=== PATIENT | female | born 1970 | race Caucasian/White ===

== ENCOUNTER 2021-03-01 08:43 | Emergency (ER) | payer BC, OTHER ==
[2021-03-01] MEDS ORDERED: ONDANSETRON 4 MG/2 ML VIAL ONE (09:37)
[2021-03-01] MEDS ORDERED: NA CHLORIDE 0.9% 1,000 ML ONE (09:37)
[2021-03-01 09:49] LABS: Absolute Lymphocytes (CBC) 2.1 K/uL (0.7-4.9); Basophils % 0.3 % (0-1.3); Hematocrit 42.9 % (36.0-45.0); Lymphocytes % 23.6 % (15.3-44.8); MPV 7.9 fL (7.6-11.3); RBC Red Blood Cell Count 4.89 M/uL (3.86-4.86)
[2021-03-01 10:15] LABS: Urine Blood Negative (Negative); Urine Glucose Negative (Negative); Urine Protein Negative (Negative)
[2021-03-01 11:39] LABS: ALT/SGPT 48 U/L (12-78); AST/SGOT 23 U/L (15-37); Albumin 3.5 g/dL (3.4-5.0); Alkaline Phosphatase 100 U/L (45-117); BUN Blood Urea Nitrogen 7 mg/dL (7-18); Bicarbonate 27 mmol/L (21-32); Bilirubin Direct 0.1 mg/dL (0-0.2); Bilirubin Total 0.6 mg/dL (0.2-1.0); Glucose Level 132 mg/dL (74-106); Lipase 108 U/L (73-393); Potassium 3.5 mmol/L (3.5-5.1); Protein, Total 7.2 g/dL (6.4-8.2); Sodium Level 141 mmol/L (136-145)
--- NOTE | 2021-03-01 11:59 | ER ---
Nurse's Notes [facility] Name: Kierra Piña Age: 50 yrs Sex: Female : 1970 Arrival Date: 03/01/2021 Time: 08:52 Bed 23 Private MD: Diagnosis: Vomiting;Diarrhea, unspecified Presentation: 03/01 08:53 Chief complaint: Patient states: Saturday night i helped my daughter moved and i threw tw2 up out of the blue. i thought i was overheated. then that night i woke up in a painicy cold sweat and thought it was anxiety. now i have diarrhea and nausea since Saturday. I cant keep anything down. and i have been running fever off and on since Saturday as well. Coronavirus screen: chills, diarrhea, fever, nausea, vomiting. Client presents with at least one sign or symptom that may indicate coronavirus-19. Standard/surgical mask placed on the client. Provider contacted for isolation considerations. Coronavirus screen: fatigue, shaking with chills. Ebola Screen: Patient denies travel to an Ebola-affected area in the 21 days before illness onset. Initial Sepsis Screen: Does the patient meet any 2 criteria? HR > 90 bpm. Does the patient have a suspected source of infection? No. Patient's initial sepsis screen is negative. Risk Assessment: Do you want to hurt yourself or someone else? Patient reports no desire to harm self or others. 08:53 Method Of Arrival: Ambulatory tw2 08:53 Acuity: CIRILO 3 tw2 08:58 Chief complaint: Patient states: but mostly i just havent been able to sleep. i took tw2 the tylenol pm this morning and i took the muscle relaxer Dr. Franco gave me last night about 4 am. Onset of symptoms was March 01, 2021. Triage Assessment: 08:57 General: Appears in no apparent distress. Behavior is calm, cooperative, appropriate tw2 for age. Pain: Denies pain. GI: Reports diarrhea, nausea, vomiting. 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 - Social history:: Smoking status: Patient denies any tobacco usage or history of. Screenin:33 Abuse screen: Denies threats or abuse. Nutritional screening: No deficits noted. oh Tuberculosis screening: No symptoms or risk factors identified. Fall Risk None identified. Assessment: 09:30 General: Appears uncomfortable, Behavior is calm, cooperative, appropriate for age, oh Reports nausea vomiting diarrhea. GI: Abdomen is Reports diarrhea, nausea, vomiting. GI:. Vital Signs: 08:57 BP 131 / 98; Pulse 92; Resp 18; Temp 98.6(TE); Pulse Ox 100% on R/A; Weight 99.79 kg tw2 (R); Height 5 ft. 4 in. (162.56 cm); 12:37 BP 126 / 82; Pulse 81; Resp 17; Pulse Ox 99% on R/A; oh 08:57 Body Mass Index 37.76 (99.79 kg, 162.56 cm) tw2 ED Course: 08:52 Patient arrived in ED. ds1 08:53 Laureano Guzmán PA is PHCP. jmm 08:53 Keyon Hudson MD is Attending Physician. jmm 08:55 Triage completed. tw2 08:57 Arm band placed on. tw2 09:06 Patti Thayer, RN is Primary Nurse. oh 09:33 Bed in low position. Call light in reach. Side rails up X 1. oh 09:51 Inserted saline lock: 20 gauge in right wrist, using aseptic technique. Blood collected.oh 11:01 Lab(s) recollected, by me, sent to lab. vg1 12:37 No provider procedures requiring assistance completed. oh 12:37 IV discontinued, bleeding controlled, Pressure dressing applied. oh Administered Medications: 09:30 Drug: NS 0.9% 1000 ml Route: IV; Rate: 1 bolus; Site: left wrist; oh 09:30 Drug: Zofran (Ondansetron) 4 mg Route: IVP; Site: right wrist; oh Outcome: 11:58 Discharge ordered by MD. jmm 12:37 Discharged to home ambulatory. oh 12:37 Condition: good 12:37 Discharge instructions given to patient. 12:38 Patient left the ED. oh Signatures: Laureano Guzmán PA PA jmm Sanford, Demi ds1 Pamela Pizano, RN RN tw2 Halima Bailey RN RN vg1 Patti Thayer RN RN oh Corrections: (The following items were deleted from the chart) 11:11 11:00 CORONAVIRUS+MR.LAB.BRZ drawn and sent. oh EDMS
--- NOTE | 2021-03-01 11:59 | EDPHYS ---
Physician Documentation [facility] Name: Kierra Piña Age: 50 yrs Sex: Female : 1970 Arrival Date: 03/01/2021 Time: 08:52 Bed 23 Private MD: ED Physician Keyon Hudson HPI: 03/01 09:02 This 50 yrs old Female presents to ER via Ambulatory with complaints of jmm Nausea/Vomiting/Diarrhea, Fever. 09:02 The patient presents to the emergency department with nausea, vomiting, diarrhea. jmm Onset: The symptoms/episode began/occurred acutely, 4 day(s) ago. Possible causes: unknown. The symptoms are aggravated by nothing. The symptoms are alleviated by nothing. Associated signs and symptoms: Pertinent positives: fever, Pertinent negatives: abdominal pain. This is a 50-year-old female with no chronic medical conditions presents emerge department with complaints of vomiting and diarrhea beginning this past Saturday. Patient states that the time she attributed to eat because she was helping her daughter move. Patient states that last night she developed fever chills along with episodes of diarrhea. Patient denies abdominal pain unless she is actively vomiting.. 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 - Social history:: Smoking status: Patient denies any tobacco usage or history of. ROS: 09:02 Constitutional: Positive for body aches, chills, fever. jmm 09:02 Abdomen/GI: Positive for nausea and vomiting, diarrhea. 09:02 All other systems are negative. Exam: 09:02 Constitutional: This is a well developed, well nourished patient who is awake, alert, jmm and in no acute distress. Head/Face: atraumatic. Eyes: EOMI, no conjunctival erythema appreciated ENT: Moist Mucus Membranes Neck: Trachea midline, Supple Chest/axilla: Normal chest wall appearance and motion. Cardiovascular: Regular rate and rhythm. No edema appreciated Respiratory: Normal respirations, no respiratory distress appreciated 09:02 Back: Normal ROM Skin: General appearance color normal MS/ Extremity: Moves all extremities, no obvious deformities appreciated, no edema noted to the lower extremities Neuro: Awake and alert, normal gait Psych: Behavior is normal, Mood is normal, Patient is cooperative and pleasant 09:02 Abdomen/GI: Inspection: abdomen appears normal, Bowel sounds: normal, Palpation: abdomen is soft and non-tender, in all quadrants. Vital Signs: 08:57 BP 131 / 98; Pulse 92; Resp 18; Temp 98.6(TE); Pulse Ox 100% on R/A; Weight 99.79 kg tw2 (R); Height 5 ft. 4 in. (162.56 cm); 12:37 BP 126 / 82; Pulse 81; Resp 17; Pulse Ox 99% on R/A; oh 08:57 Body Mass Index 37.76 (99.79 kg, 162.56 cm) tw2 MDM: 09:02 Patient medically screened. [facility] 11:57 Data reviewed: vital signs, nurses notes. Counseling: I had a detailed discussion with melanie the patient and/or guardian regarding: the historical points, exam findings, and any diagnostic results supporting the discharge/admit diagnosis, lab results, the need for outpatient follow up, to return to the emergency department if symptoms worsen or persist or if there are any questions or concerns that arise at home. ED course: Patient is alert nontoxic in appearance in the ED. No signs of an acute intra-abdominal process. Patient states she feels much better after IV fluids and antibiotics. Patient is otherwise given strict return precautions agrees with plan of care.. 03/01 09:09 Order name: Basic Metabolic Panel; Complete Time: 11:42 [facility] 03/01 09:09 Order name: CBC with Diff; Complete Time: : [facility] 03/01 09:09 Order name: Hepatic Function; Complete Time: 11:42 [facility] 03/01 09:09 Order name: Lipase; Complete Time: 11:42 [facility] 03/01 10:15 Order name: Urine Dipstick-Ancillary; Complete Time: 10:19 [facility] 03/01 09:09 Order name: IV Saline Lock; Complete Time: [facility] 03/01 09:09 Order name: Labs collected and sent; Complete Time: : [facility] 03/01 09:09 Order name: Urine Dipstick-Ancillary (obtain specimen); Complete Time: 10:16 [facility] 03/01 09:09 Order name: Urine Test (obtain specimen); Complete Time: 10:16 [facility] 03/01 09:54 Order name: Labs - recollect needed: recollect green tube; Complete Time: 10:09 bd 03/01 12:07 Order name: SARS-COV-2 RT PCR; Complete Time: 12:10 [facility] 03/01 10:18 Order name: Labs - recollect needed: recollect green tube; Complete Time: 11:00 bd Administered Medications: :30 Drug: NS 0.9% 1000 ml Route: IV; Rate: 1 bolus; Site: left wrist; oh 09:30 Drug: Zofran (Ondansetron) 4 mg Route: IVP; Site: right wrist; oh Disposition: 03/02 11:07 Co-signature as Attending Physician, Keyon Hudson MD I agree with the assessment and kdr plan of care. Disposition Summary: 03/01/21 11:58 Discharge Ordered Location: Home [facility] Condition: Stable [facility] Diagnosis - Vomiting jmm - Diarrhea, unspecified jm Followup: [facility] - With: Private Physician - When: 2 - 3 days - Reason: Recheck today's complaints, Continuance of care, Re-evaluation by your physician Discharge Instructions: - Discharge Summary Sheet [facility] - Food Choices to Help Relieve Diarrhea, Adult jmm - Vomiting, Adult jmm Forms: - Medication Reconciliation Form [facility] - Thank You Letter [facility] - Antibiotic Education [facility] - Prescription Opioid Use [facility] Prescriptions: - ondansetron 4 mg Oral tablet,disintegrating - take 1 tablet by ORAL route every 4-6 hours As needed; 20 tablet; Refills: 0, [facility] Product Selection Permitted Signatures: Dispatcher [employer] EDIA Mili Pillai Kevin, MD MD [facility] Laureano Guzmán PA PA jmm Wise, Tara, RN RN 2 Patti Thayer RN RN oh Corrections: (The following items were deleted from the chart) 03/01 11:11 10:18 CORONAVIRUS+MR.LAB.BRZ ordered. EDMS EDMS
[2021-03-01 12:56] VITALS: TEMP 98.6
[2021-03-01 12:57] VITALS: BP 126/82; O2SAT 99
== END 2021-03-01 12:38 | disposition home or self-care (01) ==
LOC: ER 08:43
DX: R19.7 Diarrhea, unspecified (principal); Z20.822 Contact with and (suspected) exposure to COVID-19; Z88.5 Allergy status to narcotic agent; Z88.8 Allergy status to other drugs, medicaments and biological substances
CPT/HCPCS: 85025; 80048; 36415; 80076; 81003; 83690; 96374; 99283; U0003; J7030; J2405

== ENCOUNTER 2021-03-02 09:33 | Emergency (ER) | payer OTHER ==
[2021-03-02 10:01] LABS: Absolute Lymphocytes (CBC) 2.9 K/uL (0.7-4.9); Basophils % 0.7 % (0-1.3); Hematocrit 43.7 % (36.0-45.0); Lymphocytes % 30.1 % (15.3-44.8); MPV 7.7 fL (7.6-11.3); RBC Red Blood Cell Count 4.96 M/uL (3.86-4.86)
[2021-03-02] MEDS ORDERED: NA CHLORIDE 0.9% 1,000 ML ONE (10:15)
[2021-03-02] MEDS ORDERED: PROMETHAZINE INJ 25 MG/ML AMP ONE (10:15)
[2021-03-02 10:36] LABS: ALT/SGPT 57 U/L (12-78); AST/SGOT 35 U/L (15-37); Albumin 3.9 g/dL (3.4-5.0); Alkaline Phosphatase 101 U/L (45-117); BUN Blood Urea Nitrogen 7 mg/dL (7-18); Bicarbonate 25 mmol/L (21-32); Bilirubin Direct 0.2 mg/dL (0-0.2); Bilirubin Total 0.8 mg/dL (0.2-1.0); Glucose Level 117 mg/dL (74-106); Lipase 119 U/L (73-393); Potassium 3.6 mmol/L (3.5-5.1); Protein, Total 7.8 g/dL (6.4-8.2); Sodium Level 139 mmol/L (136-145)
--- NOTE | 2021-03-02 11:18 | RAD REPORT ---
EXAM DESCRIPTION: CTAbdomen Pelvis W Contrast - 03/02/2021 10:56 am CLINICAL HISTORY: . Abd pain;Nausea / vomiting COMPARISON: CT-STONE PROTOCOL dated 04/23/2012 TECHNIQUE: Biphasic CT imaging of the abdomen and pelvis was performed with 100 ml non-ionic IV cont rast. All CT scans are performed using dose optimization technique as appropriate and may include automated exposure control or mA/KV adjustment according to patient size. FINDINGS: Lower chest: No acute abnormality. Liver: No acute abnormality or suspicious lesions. Biliary: No biliary ductal dilatation. Stomach: No significant focal abnormality. Duodenum: No significant focal abnormality. Pancreas: No significant abnormality. Spleen: No significant abnormality. Adrenal: No suspicious lesions. Kidney/ureter: No hydronephrosis. 3 mm stone in the right kidney. Retroperitoneum: No retroperitoneal adenopathy. Vascular: No aneurysm. Bowel: No significant focal abnormality. Diverticulosis without diverticulitis. Normal appendix. Peritoneum: Tubular structure in the lower pelvis near the right adnexa measuring 7.5 cm by 2.4 cm. T his is new since 22/05 Bladder: Grossly unremarkable. Reproductive: Interval hysterectomy. Bones: No acute fracture. Multilevel degenerative changes are present in the spine. Other: n/a IMPRESSION: No definite acute intra- abdominal abnormality. Incidental note of a new tubular structu re in the pelvis which may represent a dilated residual fallopian tube (hydrosalpinx). The patient lundberg s had an interval hysterectomy. It could also represent a peritoneal inclusion cyst.
[2021-03-02 11:31] LABS: Urine Blood Negative (Negative); Urine Glucose Negative (Negative); Urine Protein Negative (Negative)
--- NOTE | 2021-03-02 11:49 | EDPHYS ---
Physician Documentation [facility] Name: Kierra Piña Age: 50 yrs Sex: Female : 1970 Arrival Date: 03/02/2021 Time: 09:36 Bed 30 Private MD: ED Physician Flip Islas HPI: 03/02 09:39 This 50 yrs old Female presents to ER via Unassigned with complaints of rn nausea/vomiting/diarrhea. 09:39 The patient presents to the emergency department with nausea, vomiting, diarrhea. rn Onset: The symptoms/episode began/occurred 5 day(s) ago. Possible causes: unknown. The symptoms are aggravated by nothing. The symptoms are alleviated by nothing. Associated signs and symptoms: Pertinent positives: abdominal pain, nausea, vomiting, Pertinent negatives: fever, GI bleeding. Severity of symptoms: At their worst the symptoms were moderate in the emergency department the symptoms are unchanged. The patient has not experienced similar symptoms in the past. The patient has been recently seen at the [facility] Emergency Department. Patient seen here in ER yesterday, now approximately 5 days of nausea/vomiting/diarrhea/abdominal cramping. Denies any GI bleeding. Denies fever. Denies any sick contacts. Reports vomiting is improved but still having persistent diarrhea. Seen here yesterday with negative blood work, hydrated, felt better and had an appetite when she went home but when she started eating says food goes right through her. Feels generalized weakness and fatigue. Just started on antidepressant recently.. Historical: - Allergies: 09:45 Dilaudid; ss 09:45 hydromorphone HCl; ss - Home Meds: 09:45 None [Active]; ss - PMHx: 09:45 Hypertensive disorder; ss - PSHx: 09:45 hysterectomy; ss - Immunization history:: Client reports receiving the 2nd dose of the Covid vaccine. - Social history:: Smoking status: Patient denies any tobacco usage or history of. Patient/guardian denies using street drugs. - Family history:: not pertinent. - Hospitalizations: : No recent hospitalization is reported. ROS: 09:39 Constitutional: Negative for fever, chills, and weight loss, Eyes: Negative for injury, rn pain, redness, and discharge, ENT: Negative for injury, pain, and discharge, Neck: Negative for injury, pain, and swelling, Cardiovascular: Negative for chest pain, palpitations, and edema, Respiratory: Negative for shortness of breath, cough, wheezing, and pleuritic chest pain, Abdomen/GI: Negative for constipation Back: Negative for injury and pain, : Negative for injury, bleeding, discharge, and swelling, MS/Extremity: Negative for injury and deformity, Skin: Negative for injury, rash, and discoloration, Neuro: Negative for headache, numbness, tingling, and seizure. Exam: 09:39 Constitutional: This is a well developed, well nourished patient who is awake, alert, rn appears anxious Head/Face: Normocephalic, atraumatic. Eyes: Periorbital areas with no swelling, redness, or edema. ENT: Dry MM Cardiovascular: Regular rate and rhythm. No pulse deficits. Respiratory: No increased work of breathing, no retractions or nasal flaring. Abdomen/GI: Soft, non-tender Skin: Warm, dry MS/ Extremity: Pulses equal, no cyanosis. Neuro: Awake and alert, GCS 15 10:30 ECG was reviewed by the Attending Physician. rn Vital Signs: 09:40 BP 132 / 95; Pulse 81; Resp 20; Temp 98.2(TE); Pulse Ox 100% ; Weight 99.34 kg; Height ss 5 ft. 4 in. (162.56 cm); Pain 0/10; 10:06 BP 132 / 95; Pulse 81; Resp 20; Temp 98.2; Pulse Ox 100% on R/A; kh1 12:14 BP 138 / 93; Pulse 79; Resp 18; Pulse Ox 98% on R/A; kh1 09:40 Body Mass Index 37.59 (99.34 kg, 162.56 cm) Florencio Coma Score: 10:06 Eye Response: spontaneous(4). Verbal Response: oriented(5). Motor Response: obeys kh1 commands(6). Total: 15. MDM: 09:38 Patient medically screened. rn 10:07 ED course: Patient seems very anxious and worked up. Benign abdominal exam. Normal rn blood work yesterday. Stable vitals today. Could be an acute stress reaction. Patient seems fixated on whether or not she has Covid and now has 2 - Covid tests, has a close friend that is dying of Covid, and states has been having days of concern and stress with any little thing lately. She was just started on antidepressant this past week for anxiety after saw PCP.. 11:46 Differential diagnosis: Nonspecific abd pain, gastritis, pancreatitis, appendicitis, rn diverticulitis, viral gastroenteritis, gastroenteritis. Data reviewed: vital signs, nurses notes, lab test result(s), radiologic studies, CT scan, and as a result, I will discharge patient. Data interpreted: radiation monitor: rate is 81 beats/min, rhythm is normal sinus rhythm, regular, with no ectopy, Interpretation: normal rate, normal rhythm, Pulse oximetry: on room air is 81 %. Interpretation: normal. Counseling: I had a detailed discussion with the patient and/or guardian regarding: the historical points, exam findings, and any diagnostic results supporting the discharge/admit diagnosis, lab results, radiology results, the need for outpatient follow up, to return to the emergency department if symptoms worsen or persist or if there are any questions or concerns that arise at home. Response to treatment: the patient's symptoms have markedly improved after treatment, and as a result, I will discharge patient. Special discussion: Based on the patient's Hx, exam, and Dx evaluation, there is no indication for emergent surgery or inpatient Tx. It is understood by the patient/guardian that if the Sx's persist or worsen they need to return immediately for re-evaluation. I discussed with the patient/guardian in detail that at this point there is no indication for admission to the hospital. It is understood, however, that if the symptoms persist or worsen the patient needs to return immediately for re-evaluation. Based on the history and exam findings, there is no indication for further emergent testing or inpatient evaluation. I discussed with the patient/guardian the need to see the primary care provider for further evaluation of the symptoms. I discussed with the patient/guardian the need to see the psychiatrist for further evaluation of the symptoms. ED course: No acute abnormalities in blood/urine/CAT scan. Patient much better after Phenergan and fluids. Much more relaxed. Had long discussions with patient and regarding a possibility of acute stress reaction, anxiety, viral infection in the culmination of all the symptoms. Will DC home with return precautions and reassured patient.. 03/02 09:38 Order name: CBC with Diff; Complete Time: 11:11 rn 03/02 09:38 Order name: Basic Metabolic Panel; Complete Time: 11:11 rn 03/02 09:38 Order name: Urine Microscopic Only rn 03/02 09:38 Order name: LFT's; Complete Time: 11:11 rn 03/02 09:38 Order name: Lipase; Complete Time: 11:11 rn 03/02 11:31 Order name: Urine Dipstick-Ancillary; Complete Time: 11:46 EDMS 03/02 09:38 Order name: IV Start; Complete Time: 09:47 rn 03/02 09:38 Order name: Urine Dipstick-Ancillary (obtain specimen); Complete Time: 11:32 rn 03/02 09:38 Order name: CT Abd/Pelvis - IV Contrast Only; Complete Time: 11:20 rn 03/02 09:38 Order name: EKG; Complete Time: 09:38 rn 03/02 12:18 Order name: Urine Culture EDMS 03/02 09:38 Order name: EKG - Nurse/Tech; Complete Time: 09:47 rn EC:30 Rate is 76 beats/min. Rhythm is regular. QRS Hume is Normal. RI interval is normal. QRS rn interval is normal. QT interval is normal. No Q waves. T waves are Normal. No ST changes noted. Clinical impression: NSR w/ Non-specific ST/T Changes. Interpreted by me. Reviewed by me. Administered Medications: 09:59 Drug: NS 0.9% 1000 ml Route: IV; Rate: 1000 ml; Site: right antecubital; 1 09:59 Drug: Phenergan (promethazine) 12.5 mg Route: IVP; Site: right antecubital; 1 12:12 Drug: Ativan (LORazepam) 0.5 mg Route: IVP; Site: right antecubital; [facility] Disposition Summary: 03/02/21 11:48 Discharge Ordered Location: Home rn Problem: new rn Symptoms: have improved rn Condition: Stable rn Diagnosis - Vomiting rn - Diarrhea, unspecified rn - Anxiety disorder, unspecified rn - Acute stress reaction rn Followup: rn - With: Private Physician - When: As needed - Reason: Recheck today's complaints, Re-evaluation by your physician Discharge Instructions: - Discharge Summary Sheet rn - Diarrhea, Adult rn - Nausea and Vomiting, Adult rn - Stress, Adult rn - Generalized Anxiety Disorder, Adult rn Forms: - Medication Reconciliation Form rn - Thank You Letter rn - Antibiotic emergency department rn - Prescription Opioid Use rn Signatures: Dispatcher [employer] Flip Scott MD MD rn Smirch, Shelby, RN RN ss Harris, Kecia kh
--- NOTE | 2021-03-02 11:49 | ER ---
Nurse's Notes [facility] Name: Kierra Piña Age: 50 yrs Sex: Female : 1970 Arrival Date: 03/02/2021 Time: 09:36 Bed 30 Private MD: Diagnosis: Vomiting;Diarrhea, unspecified;Anxiety disorder, unspecified;Acute stress reaction Presentation: 03/02 09:40 Chief complaint: Patient states: Nausea, vomiting and diarrhea that began Saturday. Pt ss was seen yesterday in ER and had testing done,. was feeling better at discharge, but states that she is not feeling well again. Coronavirus screen: Client denies travel out of the [place] in the last 14 days. Ebola Screen: Patient denies exposure to infectious person. Patient denies travel to an Ebola-affected area in the 21 days before illness onset. Initial Sepsis Screen: Does the patient meet any 2 criteria? No. Patient's initial sepsis screen is negative. Does the patient have a suspected source of infection? No. Patient's initial sepsis screen is negative. Risk Assessment: Do you want to hurt yourself or someone else? Patient reports no desire to harm self or others. Onset of symptoms was February 25, 2021. 09:40 Method Of Arrival: EMS: [facility] 09:40 Acuity: CIRILO 3 ss Historical: - Allergies: 09:45 Dilaudid; ss 09:45 hydromorphone HCl; ss - Home Meds: 09:45 None [Active]; ss - PMHx: 09:45 Hypertensive disorder; ss - PSHx: 09:45 hysterectomy; ss - Immunization history:: Client reports receiving the 2nd dose of the Covid vaccine. - Social history:: Smoking status: Patient denies any tobacco usage or history of. Patient/guardian denies using street drugs. - Family history:: not pertinent. - Hospitalizations: : No recent hospitalization is reported. Screenin:02 Abuse screen: Denies threats or abuse. Nutritional screening: No deficits noted. kh1 Tuberculosis screening: No symptoms or risk factors identified. Fall Risk Fall in past 12 months (25 points). No secondary diagnosis (0 pts). IV access (20 points). Ambulatory Aid- None/Bed Rest/Nurse Assist (0 pts). Gait- Normal/Bed Rest/Wheelchair (0 pts) Mental Status- Oriented to own ability (0 pts). Assessment: 10:01 General: Appears in no apparent distress. uncomfortable, Behavior is anxious. Pain: kh1 Denies pain. GI: Abdomen is round Stools are reported to be diarrhea. Reports lower abdominal pain, upper abdominal pain, diarrhea, nausea, vomiting. 11:00 Reassessment: Patient appears in no apparent distress at this time. No changes from 1 previously documented assessment. Patient and/or family updated on plan of care and expected duration. Pain level reassessed. Patient is alert, oriented x 3, equal unlabored respirations, skin warm/dry/pink. 12:14 Reassessment: Patient appears in no apparent distress at this time. No changes from 1 previously documented assessment. Patient and/or family updated on plan of care and expected duration. Pain level reassessed. Patient is alert, oriented x 3, equal unlabored respirations, skin warm/dry/pink. Vital Signs: 09:40 BP 132 / 95; Pulse 81; Resp 20; Temp 98.2(TE); Pulse Ox 100% ; Weight 99.34 kg; Height ss 5 ft. 4 in. (162.56 cm); Pain 0/10; 10:06 BP 132 / 95; Pulse 81; Resp 20; Temp 98.2; Pulse Ox 100% on R/A; kh1 12:14 BP 138 / 93; Pulse 79; Resp 18; Pulse Ox 98% on R/A; kh1 09:40 Body Mass Index 37.59 (99.34 kg, 162.56 cm) Vitals: 10:06 Cardiac Rhythm Assessment Regular Sinus rhythm. kh1 Florencio Coma Score: 10:06 Eye Response: spontaneous(4). Verbal Response: oriented(5). Motor Response: obeys kh1 commands(6). Total: 15. ED Course: 09:36 Patient arrived in ED. rn 09:38 Flip Islas MD is Attending Physician. rn 09:45 Triage completed. ss 09:45 Initial lab(s) drawn, by me, sent to lab. Inserted saline lock: 20 gauge in left kj1 antecubital area, using aseptic technique. Blood collected. 09:45 Arm band placed on right wrist. ss 09:49 Madeline Monsivasi is Primary Nurse. 1 10:07 Patient has correct armband on for positive identification. Bed in low position. Call kh light in reach. Side rails up X2. Adult w/ patient. nutrition faculty member on. Pulse ox on. NIBP on. 10:56 CT Abd/Pelvis - IV Contrast Only In Process Unspecified. EDMS 11:39 Urine Microscopic Only Sent. kh1 12:37 No provider procedures requiring assistance completed. IV discontinued, intact, kh1 bleeding controlled, No redness/swelling at site. Administered Medications: 09:59 Drug: NS 0.9% 1000 ml Route: IV; Rate: 1000 ml; Site: right antecubital; kh1 09:59 Drug: Phenergan (promethazine) 12.5 mg Route: IVP; Site: right antecubital; kh1 12:12 Drug: Ativan (LORazepam) 0.5 mg Route: IVP; Site: right antecubital; [facility] Outcome: 11:48 Discharge ordered by . rn 12:37 Discharged to home ambulatory, with family. kh1 12:37 Condition: stable 12:37 Discharge instructions given to patient, Instructed on discharge instructions, follow up and referral plans. Demonstrated understanding of instructions, follow-up care. 12:38 Patient left the ED. 1 Signatures: Dispatcher [employer] EDMS Flip Islas MD MD rn Smirch, Shelby, RN RN ss Jackson, Kandis kj1 Harris, Kecia [facility]
[2021-03-02 12:17] LABS: Urine Bacteria <20 /HPF (<20); Urine RBC NONE SEEN /HPF (NONE SEEN)
[2021-03-02] MEDS ORDERED: LORazepam 2 MG/ML VIAL ONE (12:32)
[2021-03-02 12:44] VITALS: TEMP 98.2
[2021-03-02 12:46] VITALS: BP 138/93; O2SAT 98
--- NOTE | 2021-03-03 10:44 | EKG ---
Test Date: 2021-03-02 Test Time: 09:55:43 Bingo Cashier: MICHELLE MEASUREMENT RESULTS: Intervals: Rate: 76 OR: 160 QRSD: 76 QT: 384 QTc: 432 [place]: P: 29 OR: 160 QRS: 18 T: 10 INTERPRETIVE STATEMENTS: Normal sinus rhythm Minimal voltage criteria for LVH, may be normal variant Borderline ECG Compared to ECG 04/23/2012 12:54:17 Left ventricular hypertrophy now present Sinus tachycardia no longer present T-wave abnormality no longer present Possible ischemia no longer present Electronically Signed On 03-03-21 10:40:13 CDT by Leroy Cantu
== END 2021-03-02 12:38 | disposition home or self-care (01) ==
LOC: ER 09:33
DX: F43.0 Acute stress reaction (principal); F41.9 Anxiety disorder, unspecified; R19.7 Diarrhea, unspecified; I10 Essential (primary) hypertension; Z88.5 Allergy status to narcotic agent; Z88.8 Allergy status to other drugs, medicaments and biological substances
CPT/HCPCS: 93005; 87088; 85025; 87086; 80048; 36415; 80076; 83690; 74177; 96375; 96374; 99284; J2550; J7030; 81003; 81015